=== PATIENT | male | born 1970 | race Caucasian/White ===

== ENCOUNTER → 2019-11-12 09:05 | Outpatient (BNVA) | payer OTHER, SELFPAY | PROVIDERS: Family Provider Nurse Practitioner Family; Visit Provider Nurse Practitioner Family | DX: Z11.59 Encounter for screening for other viral diseases (principal); Z20.828 Contact with and (suspected) exposure to other viral communicable diseases; J20.8 Acute bronchitis due to other specified organisms | CPT/HCPCS: 87635 ==